=== PATIENT | female | born 1985 | race Caucasian/White ===

== ENCOUNTER 2021-10-27 09:33 | Emergency (ER) | payer MEDICAID ==
[~2021-10-27] VITALS: Ht 152.4 cm; Wt 116.6 kg
[2021-10-27] MEDS ORDERED: LORazepam 2 mg/ml vial IV ONE (10:15)
[2021-10-27 10:54] LABS: BASOPHILS # (AUTO) 0.1 X10'3 (0-0.2); BASOPHILS % (AUTO) 0.8 % (0-1); EOSINOPHILS # (AUTO) 0.1 X10'3 (0-0.9); EOSINOPHILS % (AUTO) 1.4 % (0-6); HEMATOCRIT 47.9 % (35.0-45.0); LYMPHOCYTES # (AUTO) 2.5 X10'3 (1.1-4.8); LYMPHOCYTES % (AUTO) 31.2 % (21-51); MEAN CORPUSCULAR HEMOGLOBIN 32.6 PG (27.0-31.0); MEAN CORPUSCULAR HGB CONC 33.3 g/dL (33.0-36.5); MEAN CORPUSCULAR VOLUME 97.8 FL (78-98); MEAN PLATELET VOLUME 9.9 FL (7.4-10.4); MONOCYTES # (AUTO) 0.5 X10'3 (0-0.9); MONOCYTES % (AUTO) 6.6 % (2-12); NEUTROPHILS # (AUTO) 4.8 X10'3 (1.8-7.7); PLATELET COUNT 164 X10'3 (140-440); RED CELL DISTRIBUTION WIDTH 13.9 % (11.5-14.5); WHITE BLOOD COUNT 7.9 X10'3 (4.5-11.0)
[2021-10-27 11:09] LABS: ALANINE AMINOTRANSFERASE 38 U/L (12-78); ALBUMIN 3.2 G/DL (3.4-5.0); ALKALINE PHOSPHATASE 50 IU/L (46-116); ANION GAP 13 (8-16); ASPARTATE AMINO TRANSFERASE 42 U/L (10-37); BILIRUBIN,TOTAL 0.4 MG/DL (0.1-1.0); BLOOD UREA NITROGEN 10 MG/DL (7-18); BUN/CREATININE RATIO 9.6 (6.6-38.0); CALCIUM 8.6 MG/DL (8.5-10.1); CHLORIDE 111 MMOL/L (99-107); CREATININE 1.04 MG/DL (0.40-0.90); GLUCOSE 106 MG/DL (70-104); LIPASE 94 U/L (73-393); MAGNESIUM 1.7 MG/DL (1.5-2.4); POTASSIUM 4.2 MMOL/L (3.5-5.1); SODIUM 141 MMOL/L (135-145); TOTAL CARBON DIOXIDE 17.1 MMOL/L (24-32); TOTAL PROTEIN 6.5 G/DL (6.4-8.2); eGFR 60 ML/MIN
[2021-10-27 11:13] LABS: UA COLLECTION TYPE STRAIGHT CATH
[2021-10-27 11:14] LABS: CLARITY,URINE CLEAR (Clear); COLOR,URINE YELLOW (Yellow); GLUCOSE, URINE NEGATIVE (Neg); KETONES,URINE TRACE mg/dl (Neg); LEUKOCYTE ESTERASE ,URINE NEGATIVE (Neg); NITRITES, URINE NEGATIVE (Neg); OCCULT BLOOD,URINE TRACE-INTACT (Neg); PH,URINE 5.5 (4.8-8.0); PROTEIN,URINE 30 mg/dl (Neg); UROBILINOGEN,URINE 0.2 E.U/dL (0.2-1.0)
[2021-10-27 11:15] LABS: URINE HCG NEGATIVE (NEG)
[2021-10-27] MEDS ORDERED: normal saline 1000ML IV soln IVB ONE (11:20)
[2021-10-27 11:21] LABS: BACTERIA,URINE NONE SEEN /HPF (Neg); MUCUS STRANDS FEW /LPF (Neg); RBC,URINE 0-2 /HPF (0-2); SQUAMOUS EPITHELIAL CELL,UR FEW /LPF (FEW); WBC,URINE 0-4 /HPF (0-4)
[2021-10-27 11:23] LABS: URINE AMPHETAMINE SCREEN NEGATIVE (Neg); URINE BARBITUATE SCREEN NEGATIVE (Neg); URINE BENZODIAZEPINES SCREEN POSITIVE (Neg); URINE CANNABINOID SCREEN NEGATIVE (Neg); URINE COCAINE SCREEN NEGATIVE (Neg); URINE METHADONE SCREEN NEGATIVE (Neg); URINE OPIATE SCREEN NEGATIVE (Neg); URINE PHENCYCLIDINE SCREEN NEGATIVE (Neg)
[2021-10-27 13:02] VITALS: BP 116/75
[2021-10-27] MEDS ORDERED: DIAZ10SP NAS (13:29)
[2021-10-27] MEDS ORDERED: DIAZ2.5K RC (15:09)
== END 2021-10-27 09:35 | disposition home or self-care (01) ==
LOC: ER 09:35
DX: E86.0 Dehydration (principal); G40.909 Epilepsy, unspecified, not intractable, without status epilepticus; R41.82 Altered mental status, unspecified; Z88.5 Allergy status to narcotic agent
CPT/HCPCS: 36415; 71045; 80053; 80305; 81001; 81025; 83605; 83690; 83735; 85025; 87040; 93005; 96360; 99285; J7030; A4353

== ENCOUNTER 2022-07-16 10:14 | Emergency (ER) | payer MEDICAID ==
[~2022-07-16] VITALS: Ht 162.6 cm; Wt 120.0 kg
[~2022-07-16 10:14] MED LIST: DIAZ10SP NAS
[2022-07-16] MEDS ORDERED: NORMAL SALINE IV ONE (10:35)
[2022-07-16] MEDS ORDERED: normal saline 500ml IV soln 500 ML IV SCH (10:35)
[2022-07-16] MEDS ORDERED: LORazepam 2 mg/ml vial IV ONE (10:35)
[2022-07-16] MEDS ORDERED: PHENYTOIN SOD IV ONE (10:35)
[2022-07-16] MEDS ORDERED: phenytoin sod inj 1,000 MG in normal saline 100ml IV soln 80 ML IV ONE (10:48)
[2022-07-16 11:00] LABS: BASOPHILS % (AUTO) 0.4 % (0-1); EOSINOPHILS # (AUTO) 0.2 X10'3 (0-0.9); EOSINOPHILS % (AUTO) 1.6 % (0-6); HEMATOCRIT 49.7 % (35.0-45.0); HEMOGLOBIN 16.7 g/dl (12.0-16.0); LYMPHOCYTES # (AUTO) 2.6 X10'3 (1.1-4.8); LYMPHOCYTES % (AUTO) 23.2 % (21-51); MEAN CORPUSCULAR HEMOGLOBIN 33.1 PG (27.0-31.0); MEAN CORPUSCULAR HGB CONC 33.7 g/dL (33.0-36.5); MEAN CORPUSCULAR VOLUME 98.4 FL (78-98); MEAN PLATELET VOLUME 8.8 FL (7.4-10.4); MONOCYTES # (AUTO) 0.9 X10'3 (0-0.9); MONOCYTES % (AUTO) 7.6 % (2-12); NEUTROPHILS # (AUTO) 7.7 X10'3 (1.8-7.7); NEUTROPHILS % (AUTO) 67.2 % (42-75); PLATELET COUNT 214 X10'3 (140-440); RED BLOOD COUNT 5.05 X10'6 (4.20-5.60); WHITE BLOOD COUNT 11.4 X10'3 (4.5-11.0)
[2022-07-16 11:21] LABS: ALANINE AMINOTRANSFERASE 23 U/L (12-78); ALBUMIN 3.6 G/DL (3.4-5.0); ALBUMIN/GLOBULIN RATIO 0.9 (1.1-1.5); ALKALINE PHOSPHATASE 56 IU/L (46-116); ANION GAP 12 (8-16); ASPARTATE AMINO TRANSFERASE 13 U/L (10-37); BILIRUBIN,TOTAL 0.3 MG/DL (0.1-1.0); BLOOD UREA NITROGEN 9 MG/DL (7-18); BUN/CREATININE RATIO 9.2 (6.6-38.0); CALCIUM 9.1 MG/DL (8.5-10.1); CHLORIDE 110 MMOL/L (99-107); CREATININE 0.98 MG/DL (0.40-0.90); GLUCOSE 94 MG/DL (70-104); SODIUM 143 MMOL/L (135-145); TOTAL CARBON DIOXIDE 20.8 MMOL/L (24-32); TOTAL PROTEIN 7.5 G/DL (6.4-8.2); eGFR 64 ML/MIN
[2022-07-16 11:48] VITALS: BP 111/67
== END 2022-07-17 06:42 | disposition home or self-care (01) ==
LOC: ER 10:14
DX: G40.909 Epilepsy, unspecified, not intractable, without status epilepticus (principal); Z88.5 Allergy status to narcotic agent; Z86.69 Personal history of other diseases of the nervous system and sense organs; Z79.899 Other long term (current) drug therapy
CPT/HCPCS: 36415; 70450; 71045; 80053; 83880; 84484; 85025; 93005; 96365; 96375; 99285; J1165; J2060; J3490; J7040; 96361; 96374

== ENCOUNTER 2022-10-01 16:41 | Emergency (ER) | payer MEDICAID ==
[~2022-10-01] VITALS: Ht 157.5 cm; Wt 118.2 kg
[2022-10-01] MEDS ORDERED: magnesium 2GM in 50ml NS 50 ML IV ONE (16:55)
[2022-10-01] MEDS ORDERED: normal saline 1000ML IV soln IV ONE (16:55)
[2022-10-01] MEDS ORDERED: MIDAZolam 5mg/ml 2ml vial IV ONE (16:55)
[2022-10-01] MEDS ORDERED: levetiracetam inj 1,000 MG in normal saline 100ml IV soln 100 ML IV ONE (17:15)
[2022-10-01 17:20] LABS: ALANINE AMINOTRANSFERASE 20 U/L (12-78); ALBUMIN 3.5 G/DL (3.4-5.0); ALKALINE PHOSPHATASE 51 IU/L (46-116); ANION GAP 14 (8-16); ASPARTATE AMINO TRANSFERASE 10 U/L (10-37); BASOPHILS % (AUTO) 0.2 % (0-1); BILIRUBIN,TOTAL 0.4 MG/DL (0.1-1.0); BLOOD UREA NITROGEN 10 MG/DL (7-18); BUN/CREATININE RATIO 10.2 (10.0-20.0); CALCIUM 8.9 MG/DL (8.5-10.1); CHLORIDE 108 MMOL/L (99-107); CREATININE 0.98 MG/DL (0.40-0.90); EOSINOPHILS # (AUTO) 0.2 X10'3 (0-0.9); EOSINOPHILS % (AUTO) 1.5 % (0-6); GLUCOSE 89 MG/DL (70-104); HEMATOCRIT 46.6 % (35.0-45.0); HEMOGLOBIN 15.9 g/dl (12.0-16.0); LYMPHOCYTES # (AUTO) 3.2 X10'3 (1.1-4.8); LYMPHOCYTES % (AUTO) 27.9 % (21-51); MEAN CORPUSCULAR HEMOGLOBIN 33.7 PG (27.0-31.0); MEAN CORPUSCULAR HGB CONC 34.2 g/dL (33.0-36.5); MEAN CORPUSCULAR VOLUME 98.6 FL (78-98); MEAN PLATELET VOLUME 9.2 FL (7.4-10.4); MONOCYTES # (AUTO) 0.7 X10'3 (0-0.9); MONOCYTES % (AUTO) 6.2 % (2-12); NEUTROPHILS # (AUTO) 7.5 X10'3 (1.8-7.7); NEUTROPHILS % (AUTO) 64.2 % (42-75); PLATELET COUNT 223 X10'3 (140-440); POTASSIUM 3.7 MMOL/L (3.5-5.1); RED BLOOD COUNT 4.73 X10'6 (4.20-5.60); RED CELL DISTRIBUTION WIDTH 12.6 % (11.5-14.5); SODIUM 141 MMOL/L (135-145); TOTAL PROTEIN 7.1 G/DL (6.4-8.2); WHITE BLOOD COUNT 11.6 X10'3 (4.5-11.0); eGFR 64 ML/MIN
[2022-10-01 17:21] LABS: CREATINE KINASE 50 U/L (26-192); MAGNESIUM 1.9 MG/DL (1.5-2.4)
[2022-10-01 17:46] VITALS: BP 126/81
--- NOTE | 2022-10-01 18:15 | NUR ---
Per NATALIE Gates, okay not to administer the order for Versed at this time. He asked to leave it there in case we need it
--- NOTE | 2022-10-01 19:44 | NUR ---
iv dc'd pt being discharged dressing applied
== END 2022-10-01 19:48 | disposition home or self-care (01) ==
LOC: ER 16:42
DX: G40.909 Epilepsy, unspecified, not intractable, without status epilepticus (principal); Z79.899 Other long term (current) drug therapy; Z88.5 Allergy status to narcotic agent
CPT/HCPCS: 36415; 70450; 80053; 82550; 83735; 85025; 93005; 96365; 96375; 99285; J1953; J3475; J3490; J7030

== ENCOUNTER 2023-07-12 17:46 | Emergency (ER) | payer MEDICAID ==
[~2023-07-12] VITALS: Ht 157.5 cm; Wt 103.5 kg
[2023-07-12 19:27] LABS: ALBUMIN 3.3 G/DL (3.4-5.0); ANION GAP 11 (8-16); BLOOD UREA NITROGEN 11 MG/DL (7-18); BUN/CREATININE RATIO 12.4 (10.0-20.0); CALCIUM 8.3 MG/DL (8.5-10.1); CHLORIDE 108 MMOL/L (99-107); CREATININE 0.89 MG/DL (0.40-0.90); GLUCOSE 95 MG/DL (70-104); POTASSIUM 3.9 MMOL/L (3.5-5.1); SODIUM 142 MMOL/L (135-145); TOTAL CARBON DIOXIDE 22.9 MMOL/L (24-32); VALPROATE 63 UG/ML (50-100); eCRCL 68 ML/MIN; eGFR 71 ML/MIN
[2023-07-12 19:30] LABS: BASOPHILS % (AUTO) 0.2 % (0-1); EOSINOPHILS # (AUTO) 0.2 X10'3 (0-0.9); HEMOGLOBIN 16.1 g/dl (12.0-16.0)
[2023-07-12 19:32] LABS: EOSINOPHILS % (AUTO) 1.4 % (0-6); HEMATOCRIT 48.2 % (35.0-45.0); LYMPHOCYTES # (AUTO) 3.2 X10'3 (1.1-4.8); LYMPHOCYTES % (AUTO) 20.6 % (21-51); MEAN CORPUSCULAR HEMOGLOBIN 33.2 PG (27.0-31.0); MEAN CORPUSCULAR HGB CONC 33.5 g/dL (33.0-36.5); MEAN CORPUSCULAR VOLUME 99.2 FL (78-98); MEAN PLATELET VOLUME 9.3 FL (7.4-10.4); MONOCYTES # (AUTO) 1.1 X10'3 (0-0.9); MONOCYTES % (AUTO) 7.4 % (2-12); NEUTROPHILS % (AUTO) 70.4 % (42-75); PLATELET COUNT 243 X10'3 (140-440); RED BLOOD COUNT 4.86 X10'6 (4.20-5.60); RED CELL DISTRIBUTION WIDTH 12.8 % (11.5-14.5); WHITE BLOOD COUNT 15.6 X10'3 (4.5-11.0)
[2023-07-12 21:32] VITALS: BP 116/75; PULSE 86; RESP 16; TEMP 98.2; O2SAT 97
== END 2023-07-12 21:33 | disposition home or self-care (01) ==
LOC: ER 17:46
DX: G40.909 Epilepsy, unspecified, not intractable, without status epilepticus (principal); Z88.5 Allergy status to narcotic agent; Z88.1 Allergy status to other antibiotic agents; Z79.899 Other long term (current) drug therapy
CPT/HCPCS: 36415; 80048; 80164; 80177; 85025; 99284

== ENCOUNTER 2023-10-01 15:04 | Inpatient (IN) | payer MEDICAID ==
[~2023-10-01] VITALS: Ht 170.2 cm; Wt 110.4 kg
[2023-10-01 18:10] LABS: BASOPHILS # (AUTO) 0.1 X10'3 (0-0.2); BASOPHILS % (AUTO) 0.5 % (0-1); EOSINOPHILS # (AUTO) 0.2 X10'3 (0-0.9); EOSINOPHILS % (AUTO) 1.3 % (0-6); HEMATOCRIT 46.4 % (35.0-45.0); HEMOGLOBIN 15.5 g/dl (12.0-16.0); LYMPHOCYTES # (AUTO) 3.7 X10'3 (1.1-4.8); LYMPHOCYTES % (AUTO) 26.4 % (21-51); MEAN CORPUSCULAR HGB CONC 33.5 g/dL (33.0-36.5); MEAN CORPUSCULAR VOLUME 98.7 FL (78-98); MEAN PLATELET VOLUME 9.2 FL (7.4-10.4); MONOCYTES # (AUTO) 0.8 X10'3 (0-0.9); MONOCYTES % (AUTO) 6.1 % (2-12); NEUTROPHILS # (AUTO) 9.1 X10'3 (1.8-7.7); NEUTROPHILS % (AUTO) 65.7 % (42-75); PLATELET COUNT 225 X10'3 (140-440); RED CELL DISTRIBUTION WIDTH 12.5 % (11.5-14.5); WHITE BLOOD COUNT 13.8 X10'3 (4.5-11.0)
[2023-10-01 18:28] LABS: HCG SERUM QL NEGATIVE
[2023-10-01 18:40] LABS: ANION GAP 12 (8-16); BLOOD UREA NITROGEN 9 MG/DL (7-18); BUN/CREATININE RATIO 12.7 (10.0-20.0); CALCIUM 8.5 MG/DL (8.5-10.1); CHLORIDE 107 MMOL/L (99-107); CREATININE 0.71 MG/DL (0.40-0.90); GLUCOSE 101 MG/DL (70-104); POTASSIUM 3.7 MMOL/L (3.5-5.1); SODIUM 137 MMOL/L (135-145); TOTAL CARBON DIOXIDE 17.9 MMOL/L (24-32); eCRCL 106 ML/MIN; eGFR > 90 ML/MIN
[2023-10-01 19:32] LABS: VALPROATE 55 UG/ML (50-100)
[2023-10-01] MEDS: levetiracetam inj 500 MG in normal saline 100ml IV soln 100 ML IV SCH (19:51)
[2023-10-01 20:38] LABS: BILIRUBIN,URINE NEGATIVE (Neg); CLARITY,URINE CLEAR (Clear); COLOR,URINE YELLOW (Yellow); GLUCOSE, URINE NEGATIVE (Neg); KETONES,URINE NEGATIVE (Neg); LEUKOCYTE ESTERASE ,URINE MODERATE (Neg); NITRITES, URINE NEGATIVE (Neg); OCCULT BLOOD,URINE NEGATIVE (Neg); PROTEIN,URINE NEGATIVE (Neg); UROBILINOGEN,URINE 0.2 E.U/dL (0.2-1.0)
[2023-10-01 20:50] LABS: UA COLLECTION TYPE CLN CATCH MIDSTREAM
[2023-10-01 20:52] LABS: RBC,URINE 0-2 /HPF (0-2)
[2023-10-01 20:53] LABS: BACTERIA,URINE FEW /HPF (Neg); RENAL CELLS, URINE FEW /HPF; SQUAMOUS EPITHELIAL CELL,UR FEW /LPF (FEW); TRANSITIONAL EPI CELLS,URINE FEW /HPF
[2023-10-01 21:06] LABS: URINE AMPHETAMINE SCREEN NEGATIVE (Neg); URINE BARBITUATE SCREEN NEGATIVE (Neg); URINE BENZODIAZEPINES SCREEN POSITIVE (Neg); URINE CANNABINOID SCREEN NEGATIVE (Neg); URINE COCAINE SCREEN NEGATIVE (Neg); URINE METHADONE SCREEN NEGATIVE (Neg); URINE OPIATE SCREEN NEGATIVE (Neg); URINE PHENCYCLIDINE SCREEN NEGATIVE (Neg)
[2023-10-01] MEDS ORDERED: potassium Cl 40MEQ/1/2NS 520ml 520 ML IV PRN (22:05)
[2023-10-01] MEDS ORDERED: magnesium 2GM in 50ml NS 50 ML IV PRN (22:05)
[2023-10-01] MEDS: CefTRIAXone/D5W-Rocephin 1gm 50 ML IV ONE (22:05)
[2023-10-01] MEDS ORDERED: mag hydrox/Alum hydrox/simeth 30ml oral suspension PO PRN (22:05)
[2023-10-01] MEDS ORDERED: magnesium Cl slow-release 64mg tablet PO PRN (22:05)
[2023-10-01] MEDS ORDERED: magnesium 4gm in 100ml NS 100 ML IV PRN (22:05)
[2023-10-01] MEDS ORDERED: magnesium hydroxide 30ml (MOM) UD suspension PO PRN (22:05)
[2023-10-01] MEDS ORDERED: acetaminophen 325mg tablet PO PRN (22:05)
[2023-10-01] MEDS ORDERED: potassium Cl 20 mEq SR tablet PO PRN ×2 (22:05)
[2023-10-01] MEDS ORDERED: ondansetron/PF 4mg/2ml inj IV PRN (22:05)
[2023-10-01] MEDS: LEVETIRACETAM IV STA (22:54)
[2023-10-01] MEDS: NORMAL SALINE IV STA (22:54)
[2023-10-01] MEDS: normal saline 1000ml 1,000 ML IV SCH (23:02)
[2023-10-01] MEDS ORDERED: KEP500T PO (23:23)
[2023-10-01] MEDS ORDERED: DIVA250T15 PO (23:23)
[2023-10-01] MEDS ORDERED: LEVE10002 PO (23:23)
[2023-10-01] MEDS: normal saline 1000ml 1,000 ML IV ONE (23:45)
[2023-10-02] MEDS: famotidine 20mg tablet PO ONE ×2 (01:50→08:24)
[2023-10-02] MEDS ORDERED: zonisamide 100mg capsule PO SCH (01:50)
[2023-10-02] MEDS: diazepam inj 5 MG/ML inj. IV ONE (02:25)
[2023-10-02] MEDS: divalproex sod 250mg ER (24-hour) tablet PO ONE (03:17)
[2023-10-02] MEDS: K and/or MAG REPLACEMENT MC SCH (08:00)
[2023-10-02] MEDS: levetiracetam inj 1,500 MG in normal saline 100ml IV soln 100 ML IV SCH (08:23)
[2023-10-02] MEDS: levoTHYROXINE 125mcg tablet PO SCH (08:24)
[2023-10-02] MEDS: enoxaparin 40mg/0.4ml syringe SUBCUT SCH (08:25)
[2023-10-02] MEDS: divalproex 250mg tablet, delayed-release PO SCH (08:30)
[2023-10-02 08:58] LABS: BASOPHILS % (AUTO) 0.3 % (0-1); EOSINOPHILS # (AUTO) 0.1 X10'3 (0-0.9); EOSINOPHILS % (AUTO) 1.3 % (0-6); HEMATOCRIT 43.3 % (35.0-45.0); HEMOGLOBIN 14.4 g/dl (12.0-16.0); LYMPHOCYTES # (AUTO) 3.6 X10'3 (1.1-4.8); LYMPHOCYTES % (AUTO) 32.3 % (21-51); MEAN CORPUSCULAR HEMOGLOBIN 33.1 PG (27.0-31.0); MEAN CORPUSCULAR HGB CONC 33.3 g/dL (33.0-36.5); MEAN CORPUSCULAR VOLUME 99.5 FL (78-98); MEAN PLATELET VOLUME 8.9 FL (7.4-10.4); MONOCYTES # (AUTO) 0.8 X10'3 (0-0.9); MONOCYTES % (AUTO) 7.1 % (2-12); NEUTROPHILS # (AUTO) 6.6 X10'3 (1.8-7.7); PLATELET COUNT 207 X10'3 (140-440); RED BLOOD COUNT 4.35 X10'6 (4.20-5.60); RED CELL DISTRIBUTION WIDTH 12.5 % (11.5-14.5); WHITE BLOOD COUNT 11.2 X10'3 (4.5-11.0)
[2023-10-02 09:11] LABS: ALBUMIN 2.8 G/DL (3.4-5.0); ANION GAP 10 (8-16); BLOOD UREA NITROGEN 5 MG/DL (7-18); BUN/CREATININE RATIO 6.8 (10.0-20.0); CHLORIDE 114 MMOL/L (99-107); CREATININE 0.73 MG/DL (0.40-0.90); GLUCOSE 88 MG/DL (70-104); POTASSIUM 3.6 MMOL/L (3.5-5.1); SODIUM 143 MMOL/L (135-145); TOTAL CARBON DIOXIDE 18.6 MMOL/L (24-32); eCRCL 103 ML/MIN; eGFR 90 ML/MIN
[2023-10-02] MEDS: CefTRIAXone/D5W-Rocephin 1gm 50 ML IV SCH (10:37)
[2023-10-02] MEDS: zonisamide 100mg capsule PO SCH (10:39)
[2023-10-02] MEDS ORDERED: LEVO125T8 PO (11:07)
[2023-10-02] MEDS ORDERED: CHOL100046 PO (11:07)
[2023-10-02] MEDS ORDERED: LEVE500T99 PO (11:07)
[2023-10-02] MEDS ORDERED: POLY119P2 PO (11:07)
[2023-10-02] MEDS ORDERED: FOLI1TAB27 PO (11:07)
[2023-10-02] MEDS ORDERED: MULT-1085 PO (11:07)
[2023-10-02] MEDS ORDERED: FAMO-129 PO (11:07)
[2023-10-02] MEDS ORDERED: DIVA125T31 PO ×2 (11:07)
[2023-10-02] MEDS ORDERED: ZONI100C42 PO ×2 (11:07)
[2023-10-02] MEDS ORDERED: DIAZ10SP (11:08)
[2023-10-02 15:30] VITALS: RESP 18; O2SAT 96
[2023-10-02 16:53] VITALS: BP 116/59; PULSE 88; RESP 17; TEMP 97.9; O2SAT 96
[2023-10-02 18:00] VITALS: BP 114/71; PULSE 76; RESP 12; TEMP 98.2; O2SAT 96
[2023-10-02 20:00] VITALS: RESP 18; O2SAT 96
[2023-10-02 22:00] VITALS: BP 139/58; PULSE 81; RESP 16; TEMP 97.2; O2SAT 95
[2023-10-03 07:13] VITALS: BP 93/46; PULSE 69; RESP 16; TEMP 98.5; O2SAT 92
[2023-10-03 07:44] LABS: BASOPHILS % (AUTO) 0.3 % (0-1); EOSINOPHILS # (AUTO) 0.2 X10'3 (0-0.9); HEMATOCRIT 42.1 % (35.0-45.0); HEMOGLOBIN 13.6 g/dl (12.0-16.0); LYMPHOCYTES # (AUTO) 3.4 X10'3 (1.1-4.8); LYMPHOCYTES % (AUTO) 38.2 % (21-51); MEAN CORPUSCULAR HEMOGLOBIN 32.6 PG (27.0-31.0); MEAN CORPUSCULAR HGB CONC 32.4 g/dL (33.0-36.5); MEAN CORPUSCULAR VOLUME 100.7 FL (78-98); MEAN PLATELET VOLUME 8.9 FL (7.4-10.4); MONOCYTES # (AUTO) 0.6 X10'3 (0-0.9); MONOCYTES % (AUTO) 6.3 % (2-12); NEUTROPHILS # (AUTO) 4.8 X10'3 (1.8-7.7); NEUTROPHILS % (AUTO) 53.2 % (42-75); PLATELET COUNT 187 X10'3 (140-440); RED BLOOD COUNT 4.19 X10'6 (4.20-5.60); RED CELL DISTRIBUTION WIDTH 12.7 % (11.5-14.5)
[2023-10-03 07:56] LABS: ALBUMIN 2.7 G/DL (3.4-5.0); ANION GAP 10 (8-16); BLOOD UREA NITROGEN 11 MG/DL (7-18); BUN/CREATININE RATIO 14.7 (10.0-20.0); CALCIUM 8.1 MG/DL (8.5-10.1); CHLORIDE 114 MMOL/L (99-107); CREATININE 0.75 MG/DL (0.40-0.90); GLUCOSE 81 MG/DL (70-104); POTASSIUM 3.7 MMOL/L (3.5-5.1); SODIUM 143 MMOL/L (135-145); TOTAL CARBON DIOXIDE 19.3 MMOL/L (24-32); eCRCL 100 ML/MIN; eGFR 87 ML/MIN
[2023-10-03 10:00] VITALS: RESP 18; O2SAT 97
[2023-10-03 10:12] VITALS: BP 89/54; PULSE 85; RESP 20; TEMP 97.4; O2SAT 93
[2023-10-03 11:16] LABS: THYROID STIMULATING HORMONE 3.47 ulU/ml (0.34-4.50)
[2023-10-03] MEDS ORDERED: DIVA250T4 PO (12:48)
[2023-10-03] MEDS ORDERED: KEP500T PO (12:51)
== END 2023-10-03 19:33 | disposition home health service (06) | DRG 53 ==
LOC: ER 15:05 → UNDOADMIN 22:01 → ED HOLD 22:01 → EDBEDREQTM 22:44 → EDBEDREQ 22:44 → ORTHO 4S 10-02 14:44
PROVIDERS: ADMIT Surgery; ATTEND Internal Medicine
PROC: 4A00X4Z Measurement of Central Nervous Electrical Activity, External Approach (ICD-10-PCS; principal; 2023-10-02)
DX: G40.109 Localization-related (focal) (partial) symptomatic epilepsy and epileptic syndromes with simple partial seizures, not intractable, without status epilepticus (principal); G80.9 Cerebral palsy, unspecified; E03.9 Hypothyroidism, unspecified; K21.9 Gastro-esophageal reflux disease without esophagitis; E66.9 Obesity, unspecified; Z79.899 Other long term (current) drug therapy; Z68.38 Body mass index [BMI] 38.0-38.9, adult; Z88.1 Allergy status to other antibiotic agents; Z88.6 Allergy status to analgesic agent
CPT/HCPCS: 36415; 70450; 71045; 80048; 80164; 80177; 80305; 81001; 84443; 84703; 85025; 87081; 87088; 93005; 95816; 96365; 99285; A6213; A6258; G0378; J0696; J1650; J1953; J3490; J7030; J7040; J7050

== ENCOUNTER 2024-08-09 21:43 | Emergency (ER) | payer MEDICAID ==
[~2024-08-09] VITALS: Ht 162.6 cm; Wt 108.0 kg
[~2024-08-09 21:43] MED LIST changes: +CHOL100046 PO; +DIAZ10SP; -DIAZ10SP NAS; +DIVA250T4 PO; +FAMO-129 PO; +FOLI1TAB27 PO; +KEP500T PO; +LEVO125T8 PO; +MULT-1085 PO; +POLY119P2 PO; +ZONI100C42 PO
[2024-08-09] MEDS: ipratropium/albuterol 3ml nebule NEB ONE (22:57)
[2024-08-09 23:02] VITALS: PULSE 100; RESP 22; O2SAT 94
[2024-08-09 23:07] VITALS: PULSE 105; RESP 23; O2SAT 98
[2024-08-09 23:16] LABS: BASOPHILS # (AUTO) 0.1 X10'3 (0-0.2); BASOPHILS % (AUTO) 1.1 % (0-1); EOSINOPHILS # (AUTO) 0.7 X10'3 (0-0.9); EOSINOPHILS % (AUTO) 9.3 % (0-6); HEMATOCRIT 49.6 % (35.0-45.0); HEMOGLOBIN 16.3 g/dl (12.0-16.0); LYMPHOCYTES # (AUTO) 2.2 X10'3 (1.1-4.8); LYMPHOCYTES % (AUTO) 31.6 % (21-51); MEAN CORPUSCULAR HEMOGLOBIN 32.7 PG (27.0-31.0); MEAN CORPUSCULAR HGB CONC 32.8 g/dL (33.0-36.5); MEAN CORPUSCULAR VOLUME 99.4 FL (78-98); MEAN PLATELET VOLUME 8.2 FL (7.4-10.4); MONOCYTES # (AUTO) 0.8 X10'3 (0-0.9); NEUTROPHILS # (AUTO) 3.3 X10'3 (1.8-7.7); PLATELET COUNT 179 X10'3 (140-440); RED BLOOD COUNT 4.99 X10'6 (4.20-5.60); RED CELL DISTRIBUTION WIDTH 12.4 % (11.5-14.5); WHITE BLOOD COUNT 7.1 X10'3 (4.5-11.0)
[2024-08-09 23:27] LABS: D-DIMER 0.49 MG/L FEU (0-0.50)
[2024-08-09 23:39] LABS: ALBUMIN 2.9 G/DL (3.4-5.0); ANION GAP 13 (8-16); BLOOD UREA NITROGEN 8 MG/DL (7-18); BUN/CREATININE RATIO 12.9 (10.0-20.0); CALCIUM 8.2 MG/DL (8.5-10.1); CHLORIDE 106 MMOL/L (99-107); CREATININE 0.62 MG/DL (0.40-0.90); GLUCOSE 136 MG/DL (70-104); POTASSIUM 3.8 MMOL/L (3.5-5.1); PRO BRAIN NATRIURETIC PEPTIDE 75 PG/ML (0-125); SODIUM 139 MMOL/L (135-145); THYROID STIMULATING HORMONE 1.87 ulU/ml (0.34-4.50); TOTAL CARBON DIOXIDE 20.5 MMOL/L (24-32); eCRCL 106 ML/MIN; eGFR > 90 ML/MIN
[2024-08-10 00:33] VITALS: BP 116/82; PULSE 104; RESP 16; TEMP 98.7; O2SAT 94
== END 2024-08-10 03:41 | disposition home or self-care (01) ==
LOC: ER 21:43
DX: R05.9 Cough, unspecified (principal); R06.02 Shortness of breath; Z88.1 Allergy status to other antibiotic agents; Z88.5 Allergy status to narcotic agent
CPT/HCPCS: 36415; 71045; 80048; 83880; 84145; 84443; 85025; 85379; 93005; 94640; 94760; 99285

== ENCOUNTER 2024-11-04 12:11 | Emergency (ER) | payer MEDICAID ==
[~2024-11-04 12:11] MED LIST changes: -DIAZ10SP; +DIAZ10SP2
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
[2024-11-04 15:53] VITALS: BP 136/71; PULSE 82; RESP 14; TEMP 98.1; O2SAT 95
== END 2024-11-04 15:59 | disposition home or self-care (01) ==
LOC: ER 12:12 → EEVIPCON 12:12 → ER 15:59
DX: T76.21XA Adult sexual abuse, suspected, initial encounter (principal); Z88.5 Allergy status to narcotic agent; Z88.1 Allergy status to other antibiotic agents; Z79.899 Other long term (current) drug therapy
CPT/HCPCS: 99284

== ENCOUNTER 2025-03-02 19:09 | Emergency (ER) | payer MEDICAID ==
[~2025-03-02] VITALS: Ht 157.5 cm; Wt 120.0 kg
[~2025-03-02 19:09] MED LIST changes: +DIVA-159 PO; -DIVA250T4 PO
--- NOTE | 2025-03-02 19:14 | Physician Documentation ---
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 The patient states that she has been taking her medication. The patient denies any recent illness no fevers chills nausea or vomiting or diarrhea. Patient's symptoms are improving. Medication Reconciliation Allergies: Coded Allergies: hydrocodone (Unverified Allergy, Mild, 03/02/25) hydromorphone (Unverified Allergy, Mild, 03/02/25) vancomycin (Unverified Allergy, Mild, 03/02/25) Scheduled Cholecalciferol (Vitamin D3) (Vitamin D3), 1 CAP PO DAILY, (Reported) Divalproex Sodium (Depakote), 750 MG PO BID@0830,1730 Famotidine (Pepcid), 1 TAB PO Q12H, (Reported) Folic Acid* (Folic Acid*), 1 TAB PO DAILY, (Reported) Levetiracetam (Keppra), 3 TAB PO Q12H Levothyroxine Sodium (Levothyroxine Sodium), 1 TAB PO DAILY, (Reported) Multivitamin (Multi Vitamin Daily), 1 TAB PO DAILY, (Reported) Polyethylene Glycol 3350 (Miralax), 17 GM PO DAILY, (Reported) Zonisamide (Zonegran), 3 CAP PO QPM, (Reported) Zonisamide (Zonegran), 2 CAP PO QAM, (Reported) Discontinued Medications Diazepam (Valtoco), 1 SPR NA DAILY PRN for seizures, (Reported) Discontinued Reason: patient no longer taking Past Medical History 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 GENERAL: Alert, no apparent distress. HEENT: Normocephalic, atraumatic, PERRL, EOMI, dry mucosa, no erythema RESPIRATORY: Lungs clear, normal breath sounds, no respiratory distress. CHEST: No accessory muscle use, no retractions CV: Regular rate, rhythm, no edema, no murmur, No: JVD GI: Soft, non-tender, bowels sounds present, no rebound, guarding, or rigidity BACK: No CVA tenderness, or swelling MUSCULOSKELETAL: No deformities, no edema SKIN: Warm and dry, no rash NEURO: Oriented x4, No motor or sensory deficit PSYCH: Normal mood and affect, no agitation Progress Results/Orders Results/Orders Completed Orders - YURY AZAR MD Normal Saline 1000ml (0.9% Sodium Chlori (03/02/25 19:15) BMP (03/02/25 19:14) Levetiracetamnacl 1500mg/100ml (Levetira (03/02/25 19:14) Medications Received in ER Medications (Trade) Dose Ordered Sig/Carolin Route PRN Reason Start Time Stop Time Status Last Admin Dose Admin (0.9% sodium chloride (NS) 1000ml IV soln) 1,000 ml ONCE ONCE IVB 03/02/25 19:15 03/02/25 19:16 DC 03/02/25 19:33 1,000 ML Levetiracetam 100 ml @ 400 mls/hr ONCE STAT IV 03/02/25 19:14 03/02/25 19:28 DC 03/02/25 19:33 400 MLS/HR Vital Signs 03/02/25 03/02/25 03/02/25 03/02/25 19:12 19:39 19:39 20:19 Temp 98.2 98.2 98.4 Pulse 106 97 95 Resp 18 20 20 20 B/P (MAP) 124/66 118/77 (91) 135/71 (92) Pulse Ox 96 96 94 O2 Flow Rate 0 0 03/02/25 03/02/25 03/02/25 21:00 22:11 22:34 Temp 98.4 97.6 Pulse 95 94 80 Resp 20 16 20 B/P (MAP) 115/77 (90) 142/84 (103) 162/83 Pulse Ox 97 98 97 O2 Flow Rate 0 Laboratory Tests Test 03/02/25 19:36 03/02/25 20:40 CBC Comment Sodium Level 139 Potassium Level 3.9 Chloride Level 108 H Carbon Dioxide Level 18.9 L Anion Gap 12 Blood Urea Nitrogen 11 Creatinine 0.92 H Estimated GFR/1.73 m2 68 BUN/Creatinine Ratio 12.0 Glucose Level 146 H Calcium Level 8.5 Albumin 3.1 L Chemistry Comments White Blood Count 10.4 Red Blood Count 4.20 Hemoglobin 14.3 Hematocrit 41.7 Mean Corpuscular Volume 99.3 H Mean Corpuscular Hemoglobin 34.1 H Mean Corpuscular Hemoglobin Concent 34.3 Red Cell Distribution Width 12.7 Platelet Count 182 Mean Platelet Volume 8.0 Neutrophils (%) (Auto) 65.9 Lymphocytes (%) (Auto) 22.7 Monocytes (%) (Auto) 8.8 Eosinophils (%) (Auto) 1.8 Basophils (%) (Auto) 0.8 Neutrophils # (Auto) 6.9 Lymphocytes # (Auto) 2.4 Monocytes # (Auto) 0.9 Eosinophils # (Auto) 0.2 Basophils # (Auto) 0.1 Medical Decision Making Additional information obtaine: old records Findings The patient is a 39-year-old female with a known seizure disorder the patient has a witnessed seizure 4-5 minutes patient has been compliant with the medications. Patient was at the neuro there neurologic baseline when I examined the patient there were no focal neurologic findings patient's labs were reviewed the patient will received Keppra and IV fluids here in the emergency department. The patient remained hemodynamically stable and without any evidence of any neurologic compromise, the patient was discharged. Prior hospitalizations were reviewed. The patient's pulse oximetry was interpreted as adequate normal and her environmental monitoring technician was interpreted as a sinus rhythm. Differential Diagnosis Seizure disorder, Departure Time of Disposition: 21:02 Disposition: 01 HOME / SELF CARE / HOMELESS Impression: Primary Impression: Seizure disorder Discharge Instructions: Seizure, Adult Referrals: NO PRIMARY CARE PROVIDER (PCP) Signature Scribe Signature: No scribe Attestation: The note accurately reflects work and decisions made by me.Yury Azar MD 03/03/25 01:54 YURY AZAR MD Mar 02, 2025 19:14
[2025-03-02] MEDS: levetiracetamNACL 1500mg/100mL 100 ML IV STA (19:33)
[2025-03-02] MEDS: normal saline 1000ML IV soln IVB ONE (19:33)
[2025-03-02 20:00] LABS: CREATININE 0.92 MG/DL (0.40-0.90); TOTAL CARBON DIOXIDE 18.9 MMOL/L (24-32); eCRCL 66 ML/MIN; eGFR 68 ML/MIN
[2025-03-02 20:54] LABS: MEAN PLATELET VOLUME 8.0 FL (7.4-10.4); RED CELL DISTRIBUTION WIDTH 12.7 % (11.5-14.5)
[2025-03-02 22:34] VITALS: BP 162/83; PULSE 80; RESP 20; TEMP 97.6; O2SAT 97
== END 2025-03-02 22:38 | disposition home or self-care (01) ==
LOC: ER 19:09
DX: G40.909 Epilepsy, unspecified, not intractable, without status epilepticus (principal); Z88.1 Allergy status to other antibiotic agents; Z88.5 Allergy status to narcotic agent
CPT/HCPCS: 36415; 80048; 85025; 96374; 99285; J1953; J7030